=== PATIENT | female | born 1980 | race Two or more races ===

== ENCOUNTER → 2024-06-21 10:44 | Outpatient (REF) | payer BC, SELFPAY | LOC: WDC 10:44 | PROVIDERS: ATTENDING PHYSICIAN Family Medicine | DX: Z12.31 Encounter for screening mammogram for malignant neoplasm of breast (principal) | CPT/HCPCS: 77063; 77067 ==

== ENCOUNTER → 2025-02-09 14:35 | Outpatient (REF) | payer BC, SELFPAY | LOC: HWRAD 14:35 | PROVIDERS: ATTENDING PHYSICIAN Family Medicine | DX: R10.9 Unspecified abdominal pain (principal); N30.90 Cystitis, unspecified without hematuria | CPT/HCPCS: 76770 ==